=== PATIENT | female | born 1995 | race African-American/Black ===

== ENCOUNTER 2018-03-06 12:34 | Emergency (ER) | payer BC ==
[2018-03-06 12:41] VITALS: TEMP 98.2; BMI 35.4
--- NOTE | 2018-03-06 12:48 | PDOC ---
History of Present Illness - General Chief Complaint: Nausea/Vomiting Stated Complaint: FATIGUE, DEHYDRATED Time Seen by Provider: 03/06/18 12:44 - History of Present Illness Initial Comments: 03/06/18 12:56 The patient is a 22 6 week female with not significant PMH who presents for evaluation of nausea, vomiting, and fatigue. The patient notes that she follows with an OB at [facility] and had an Ultrasound 1 week ago with a confirmed intrauterine at 6 and a half weeks. She has been experiencing daily nausea and vomiting over the past 2 weeks and has been prescribed zofran by her OB. However, she notes worsening symptoms today with unable to tolerate anything PO prompting her presentation to the ED for evaluation. She reports some generalized fatigue and lightheadedness, but otherwise denies fevers, chills, SOB, chest pain, abdominal pain, changes with urination, vaginal bleeding, or vaginal discharge. Past History - Past Medical History Allergies/Adverse Reactions: Allergies Allergy/AdvReac Type Severity Reaction Status Date / Time No Known Allergies Allergy Verified 03/06/18 12:39 COPD: No - Immunization History Immunization Up to Date: No - Suicide/Smoking/Psychosocial Hx Smoking History: Never smoked Have you smoked in the past 12 months: No Information on smoking cessation initiated: No Hx Alcohol Use: No Drug/Substance Use Hx: No Substance Use Type: None Review of Systems - Review of Systems Comments:: 03/06/18 13:00 Constitutional: Fatigue. No fevers, chills, malaise HEENT: No Rhinorrhea, nasal congestion, visual changes Cardiovascular: Lightheadedness. No chest pain, syncope, palpitations, Respiratory: No Cough, SOB, Hemoptysis, Gastrointestinal: Nausea, Vomiting. No Abdominal pain, Constipation, Diarrhea, Melena Genitourinary: No Vaginal bleeding, Vaginal discharge, Dysuria, Frequency, Urgency, Hesitancy, Hematuria, Flank pain Musculoskeletal: No Myalgia, arthralgia Skin: No rashes, itching, bruising, pallor Neurologic: No Headache, Dizziness, Numbness, Weakness, or Tingling Psychiatric: No Hallucinations. No SI or HI *Physical Exam - Vital Signs Last Vital Signs Temp Pulse Resp BP Pulse Ox 98.2 F 117 H 18 145/69 100 03/06/18 12:39 03/06/18 12:39 03/06/18 12:39 03/06/18 12:39 03/06/18 12:39 - Physical Exam Comments: 03/06/18 13:01 General Appearance: Nourished. No Apparent Distress HEENT: EOMI, ANITA. No Pharyngeal Erythema, Tonsillar Exudate, Tonsillar Erythema Neck: No Cervical Lymphadenopathy Respiratory/Chest: Lungs Clear, Normal Breath Sounds. No Crackles, Rales, Rhonchi, Wheezing Cardiovascular: Regular Rhythm, Regular Rate. No Murmur, Gallops, Rubs Gastrointestinal/Abdominal: Normal Bowel Sounds, Soft. No Guarding, Rebound, Tenderness Musculoskeletal: No CVA Tenderness Extremity: Normal Capillary Refill Integumentary: Normal Color, Dry, Warm Neurologic: Fully Oriented, Alert, Normal Mood/Affect, Normal Response, ED Treatment Course - LABORATORY CBC & Chemistry Diagram: 03/06/18 13:40 03/06/18 13:55 Medical Decision Making - Medical Decision Making 03/06/18 13:03 The patient is a 22 6 week female with not significant PMH who presents for evaluation of nausea, vomiting, and fatigue. Differential includes but is not limited to: Gastroenteritis, Hyperemesis Gravidum, Infectious, Metabolic Derangement. Given the patient's history, it is likely the patient's symptoms are due to hyperemasis Gravidum. We will obtain a cbc, cmp, ua, beta-quant to evaluate further. We will treat in the meantime with iv fluids, zofran, and continue to monitor and reassess. 03/06/18 15:09 CBC, cmp, ua are unremarkable. The patient reports significant improvement in her symptoms and has tolerated PO intake without difficulty. We are comfortable discharging the patient home at this time with OB follow up. We discussed the results, plan, and return precautions with the patient who voiced understanding and is agreeable with the plan. *DC/Admit/Observation/Transfer Diagnosis at time of Disposition: Hyperemesis gravidarum - Discharge Dispostion Disposition: HOME Condition at time of disposition: Stable Decision to Admit order: No - Referrals - Patient Instructions Printed Discharge Instructions: DI for Nausea -- Adult, DI for Vomiting -- Adult Additional Instructions: Please return to the ER if you experience concerning or worsening symptoms including worsening abdominal pain, vomiting, vaginal bleeding, or fevers. Your lab results were normal here in the ER. It is important that you call to schedule a follow up appointment with your OB within 2-3 days to discuss your ER visit and further management of your symptoms. - Post Discharge Activity
[2018-03-06] MEDS ORDERED: ONDANSETRON 4 MG/2 ML VIAL IVPUSH ONE (12:53)
[2018-03-06] MEDS ORDERED: SODIUM CHLORIDE 1,000 ML IV STA (12:53)
[2018-03-06] MEDS ORDERED: ACETAMINOPHEN 1000 MG/100 ML VIAL (NON FORMULARY) IVPB ONE (12:53)
[2018-03-06] MEDS ORDERED: ONDANSETRON 4 MG/2 ML VIAL ONE (13:14)
[2018-03-06] MEDS ORDERED: ACETAMINOPHEN INJECTION 100 ML IVPB ONE (13:14)
--- NOTE | 2018-03-06 13:45 | PDOC ---
Attending Attestation - Resident Resident Name: Preston Pichardo - ED Attending Attestation I have performed the following: I have examined & evaluated the patient, The case was reviewed & discussed with the resident, I agree w/resident's findings & plan, Exceptions are as noted - HPI HPI: 03/06/18 13:40 The patient is a 22 year old approximately 6.5 weeks female(), with no significant past medical history, who presents to the emergency department with intermittent nausea, vomiting, lightheadedness for several weeks. Patient reports she has been experiencing nausea and vomiting a few times a week. She is being followed by her OB at [facility] who diagnosed her with hyperemesis gravidarum and put her on zofran. However, despite the medication, pt states she still gets nauseous. Pt has been able to tolerate most POs. Pt denies F/C. Denies abdominal pain. She states she had US last week that confirmed IUP. - Physicial Exam PE: 03/06/18 13:45 "GENERAL: Awake, alert, and fully oriented, in no acute distress. HEAD: No signs of trauma EYES: PERRLA, EOMI, sclera anicteric, conjunctiva clear ENT: Auricles normal inspection, hearing grossly normal, nares patent, oropharynx clear without exudates. Moist mucosa NECK: Nontender, no stepoffs, Normal ROM, supple, no lymphadenopathy, JVD, or masses LUNGS: Breath sounds equal, clear to auscultation bilaterally. No wheezes, and no crackles HEART: Regular rate and rhythm, normal S1 and S2, no murmurs, rubs or gallops ABDOMEN: Soft, nontender, normoactive bowel sounds. No guarding, no rebound. No masses EXTREMITIES: Normal range of motion, no edema. No clubbing or cyanosis. No cords, erythema, or tenderness NEUROLOGICAL: Cranial nerves II through XII intact. 5/5 strength and sensation in all extremities, Normal speech, normal gait, normal cerebellar function SKIN: Warm, Dry, normal turgor, no rashes or lesions noted. " - Medical Decision Making 03/06/18 13:45 22 F with hyperemesis gravidarum presents with N/V. Will r/o UTI and check for metabolic derangement. - Labs, UA, UCx - IVF, zofran - PO challenge 03/06/18 14:48 Labs, UA wnl Pt reassessed - now feels much better s/p IVF and zofran. Pt able to tolerate PO juice in ED. Repeat vitals HR 80s, BP 110s systolic. Pt is well appearing, with normal vitals. Clinically stable for DC at this time. I discussed the physical exam findings, ancillary test results and final diagnoses with the patient. I answered all of the patient's questions. The patient was satisfied with the care received and felt comfortable with the discharge plan and treatment plan. The patient agrees to follow up with the primary care physician within 24-72 hours.
[2018-03-06 14:04] LABS: BASO % 0.9 % (0-2.0); EOS % 1.4 % (0-4.5); HEMATOCRIT 36.3 % (32.4-45.2); HEMOGLOBIN 12.5 GM/dL (10.7-15.3); LYMPH % 22.7 % (8-40); MCH 26.9 pg (25.7-33.7); MCHC 34.5 g/dl (32.0-36.0); MEAN PLT VOLUME 8.3 fl (7.5-11.1); MONO % 9.4 % (3.8-10.2); NEUT % 65.6 % (42.8-82.8); PLATELET COUNT 368 K/MM3 (134-434); RBC 4.65 M/mm3 (3.60-5.2); RDW 14.1 % (11.6-15.6); WHITE BLOOD COUNT 9.9 K/mm3 (4.0-10.0)
[2018-03-06 14:05] LABS: URINE APPEARANCE SLCLOUDY; URINE BILIRUBIN NEGATIVE (<2.0 mg/dL); URINE COLOR YELLOW; URINE GLUCOSE (UA) NEGATIVE (NEGATIVE); URINE KETONE TRACE (NEGATIVE); URINE LEUK ESTERASE NEGATIVE (NEGATIVE); URINE NITRITE NEGATIVE (NEGATIVE); URINE PROTEIN NEGATIVE (NEGATIVE); URINE UROBILINOGEN NEGATIVE mg/dL (0.2-1.0)
[2018-03-06 14:08] LABS: EPI CELLS MODERATE /HPF (FEW); URINE MUCUS MANY
[2018-03-06 14:26] LABS: ALBUMIN 3.9 g/dl (3.4-5.0); ANION GAP 8 (8-16); BILIRUBIN,TOTAL 0.4 mg/dL (0.2-1.0); BLOOD UREA NITROGEN 6 mg/dL (7-18); CALCIUM 8.8 mg/dL (8.5-10.1); CHLORIDE 102 mmol/L (98-107); CO2 26 mmol/L (21-32); GLUCOSE,RANDOM 82 mg/dL (74-106); POTASSIUM 3.9 mmol/L (3.5-5.1); SGOT/AST 19 U/L (15-37); SGPT/ALT 57 U/L (12-78); SODIUM 136 mmol/L (136-145); TOT PROT 7.4 g/dl (6.4-8.2)
[2018-03-06 14:27] LABS: ALK PHOS 86 U/L (45-117); CREATININE 0.7 mg/dL (0.55-1.02)
[2018-03-06 16:19] VITALS: BP 116/63; PULSE 85
== END 2018-03-06 16:11 | disposition home or self-care (01) ==
LOC: JER 12:34
PROC: 3E033NZ Introduction of Analgesics, Hypnotics, Sedatives into Peripheral Vein, Percutaneous Approach (ICD-10-PCS; principal; 2018-03-06)
PROC: 3E033GC Introduction of Other Therapeutic Substance into Peripheral Vein, Percutaneous Approach (ICD-10-PCS; 2018-03-06)
PROC: 3E0337Z Introduction of Electrolytic and Water Balance Substance into Peripheral Vein, Percutaneous Approach (ICD-10-PCS; 2018-03-06)
DX: O26.891 Other specified pregnancy related conditions, first trimester (principal); O21.0 Mild hyperemesis gravidarum; Z3A.01 Less than 8 weeks gestation of pregnancy
CPT/HCPCS: 36415; 80053; 81003; 81015; 84702; 85025; 99281-25; J0131; J7030

== ENCOUNTER 2018-10-14 07:15 | Inpatient (IN) | payer BC ==
[~2018-10-14 07:15] MED LIST: CITRIC ACID/SODIUM CITRATE 30 ML UNIT-DOSE CUP PO ONE
[2018-10-14 08:17] LABS: BASO % 0.5 % (0-2.0); EOS % 1.6 % (0-4.5); HEMATOCRIT 34.7 % (32.4-45.2); HEMOGLOBIN 12.3 GM/dL (10.7-15.3); LYMPH % 31.7 % (8-40); MCH 27.3 pg (25.7-33.7); MCHC 35.5 g/dl (32.0-36.0); MEAN PLT VOLUME 9.5 fl (7.5-11.1); NEUT % 58.2 % (42.8-82.8); PLATELET COUNT 337 K/MM3 (134-434); RBC 4.52 M/mm3 (3.60-5.2); RDW 15.7 % (11.6-15.6); WHITE BLOOD COUNT 10.5 K/mm3 (4.0-10.0)
[2018-10-14] MEDS ORDERED: DEXTROSE 5%-LACTATED RINGERS 1,000 ML IV SCH (08:30)
[2018-10-14] MEDS ORDERED: DINOPROSTONE 10 MG VAGINAL SUPPOSITORY VG ONE (08:33)
--- NOTE | 2018-10-14 08:39 | HP ---
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: Alzheimer's, CVA, Dementia, Migraine, Multiple Sclerosis, Peripheral Neuropathy, Parkinson's, Seizure, Syncope, TIA, Vertigo, Other Cardiovascular: No: AFIB, Aneurysm, Aortic Insufficiency, Aortic Stenosis, CAD, CHF, Deep Vein Thrombosis, HTN, Hyperlipdemia, NH, Mitral Insufficiency, Mitral Stenosis, Murmur, Pulmonary Hypertension, Other Pulmonary: No: Asthma, Bronchitis, Cancer, COPD, O2 Dependent, Pneumonia, Previously Intubated, Pulmonary Embolus, Pulmonary Fibrosis, Sleep Apnea, Other Gastrointestinal: No: Ascites, Cancer, Constipation, Crohn's Disease, Diverticulitis, Diverticulosis, Esophageal Varices, Gastritis, GERD, GI Bleed, Hemorrhoids, Hiatal Hernia, Inflamatory Bowel Disease, Irritable Bowel Disease, Pancreatitis, Peptic Ulcer Disease, Ulcerative Colitis, Other Hepatobiliary: No: Cirrhosis, Cholelithiasis, Cholecystitis, Choledocholithiasis , Hepatitis A, Hepatitis B, Hepatitis C, Other Renal/: No: Renal Failure, Renal Inusuff, BPH, Cancer, Hematuria, Hemodialysis , Neurogenic Bladder, Renal Calculi, UTI, Other Reproductive: No: Ectopic , Endometriosis, Fibroids, PID, Polycystic Ovary Syndrome, Postmenopausal, Other ...: 1 ...Para: 0 ... Weeks Gestation by Dates: 40 ...EDC by Dates: 10/14/18 Heme/Onc: No: Anemia, B12 Deficiency, Bleeding Disorder, Cancer, Current Chemotherapy, Current Radiation Therapy, Hemochromatosis, Hypercoaguable State, Myeloproliferative Synd, Sickle Cell Disease, Sickle Cell Trait, Thrombocytopenia, Other Infectious Disease: No: AIDS, C-Diff, Herpes Zoster, HIV, MRSA, STD's, Tuberculosis, VREF, Other Psych: No: Addictions, Anxiety, Bipolar, Depression, Panic, Psychosis, Schizophrenia, Other Musculoskeletal: Yes: Osteoarthritis Rheumatology: No: Fibromyalgia, Gout, Lupus, Rheumatoid Arthritis, Sarcoidosis, Vasculitis, Other Endocrine: No: Liberty's Disease, Roberto's Disease, Diabetes Insipidus, Diabetes Mellitus, Hyperparathyroidism, Hyperthyroidism, Hypothyroidism, Osteopenia, SIADH, Other Dermatology: No: Basal Cell, Cellulitis, Eczema, Melanoma, Psoriasis, Squamous Cell, Other - Past Surgical History Past Surgical History: Yes: None Hx Myomectomy: No Hx Transabdominal Cerclage: No - Smoking History Smoking history: Never smoked Have you smoked in the past 12 months: No - Alcohol/Substance Use Hx Alcohol Use: No History of Substance Use: reports: None - Social History Usual Living Arrangement: Yes: With Significant Other ADL: Independent 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 History of Recent Travel: No Home Medications - Allergies Allergies/Adverse Reactions: Allergies Allergy/AdvReac Type Severity Reaction Status Date / Time No Known Allergies Allergy Verified 10/01/18 18:00 - Home Medications Home Medications: Ambulatory Orders Pnv No.95/Ferrous Fum/Folic AC [ Vitamin Tablet] 1 each PO DAILY Family Disease History - Family Disease History Family Disease History: Diabetes: Grandparent, Heart Disease: Father (HTN), Other: Mother (arthritis) Review of Systems - Review of Systems Constitutional: reports: No Symptoms Eyes: reports: No Symptoms HENT: reports: No Symptoms Neck: reports: No Symptoms Cardiovascular: reports: No Symptoms Respiratory: reports: No Symptoms Gastrointestinal: reports: No Symptoms Genitourinary: reports: No Symptoms Breasts: reports: No Symptoms Reported Musculoskeletal: reports: No Symptoms Integumentary: reports: No Symptoms Neurological: reports: No Symptoms Endocrine: reports: No Symptoms Hematology/Lymphatic: reports: No Symptoms Psychiatric: reports: No Symptoms Pain Intensity: 0 Physical Exam - Maternity Constitutional: Yes: Well Nourished, No Distress, Calm Eyes: Yes: WNL, Conjunctiva Clear, EOM Intact HENT: Yes: WNL, Atraumatic, Normocephalic Neck: Yes: WNL, Supple, Trachea Midline Cardiovascular: Yes: WNL, Regular Rate and Rhythm Lungs: Clear to auscultation, Normal air movement - Abdominal Exam/OB Fundal Height: 40 Number of Fetuses: Single Presentation: Vertex Contractions: Yes Regularity: Irregular Intensity: Unaware Monitor Mode: External Heart Rate (range): 150 Heart Rate Location: Midline Category: I Accelerations: Non-Uniform Decelerations: None - Vaginal Exam/OB Vaginal Bleediing: No Speculum Exam: No Dilatation (cm): 0 Effacement (%): 0 Amniotic Membrane Status: Intact Presentation: Vertex/Position Station: -4 (Adequate gynecoid pelvimetry, EFW ~3200g) - Physical Exam Musculoskeletal: Yes: WNL Extremities: Yes: WNL Edema: Yes Edema: LLE: Trace, RLE: Trace Deep Tendon Reflex Grade: Normal +2 ...Motor Strength: WNL Psychiatric: Yes: WNL, Alert, Oriented - Labs Lab Results: CBC, BMP 10/14/18 07:55 Hemorrhage Risk Assessment - Risk Factors Medium Risk Factors: Yes: None High Risk Factors: Yes: None Risk Score: 1 Risk Level: Medium Risk Imaging - Results Ultrasound: Report Reviewed Assessment/Plan 23yo P0 with at EGA 40wk and labile BP's in office, admitted for labor indx. Pt is not in labor. Fetus with Category I tracing. Adequate gynecoid pelvimetry on exam. We had long discussion re: risks, benefits, and alternatives of labor induction. I explained the options of expectant management awaiting spontaneous labor, induction of labor, and elective section. The risks of uterine tachysystole, distress, uterine rupture, need for emergency C/S, hemorrhage, infection, scarring, etc. were discussed. We also discussed the risks of meconium aspiration, shoulder dystocia , and anesthesia options. The pt requested to proceed with induction. We discussed the alternative methods of induction with Cervidil, Cytotec, Folley ballon, and pitocin. The pt prefers Cervidil followed by pitocin, if needed.
[2018-10-14 08:44] LABS: INR 0.98 (0.83-1.09); PROTHROMBIN TIME (PATIENT) 11.6 SEC (9.7-13.0)
[2018-10-14 08:47] LABS: URINE APPEARANCE CLOUDY; URINE BILIRUBIN NEGATIVE (<2.0 mg/dL); URINE COLOR YELLOW; URINE GLUCOSE (UA) NEGATIVE (NEGATIVE); URINE KETONE NEGATIVE (NEGATIVE); URINE LEUK ESTERASE 3+ (NEGATIVE); URINE NITRITE NEGATIVE (NEGATIVE); URINE PROTEIN 1+ (NEGATIVE); URINE UROBILINOGEN NEGATIVE mg/dL (0.2-1.0)
[2018-10-14 08:47] LABS: ACTIVATED PTT 25.9 SECONDS (25.2-36.5)
[2018-10-14 08:51] LABS: EPI CELLS MODERATE /HPF (FEW); URINE BACTERIA FEW /hpf (NONE SEEN); YEAST FEW
[2018-10-14 09:06] VITALS: BMI 36.8
[2018-10-14 09:09] LABS: ALBUMIN 2.5 g/dl (3.4-5.0); ALK PHOS 212 U/L (45-117); ANION GAP 9 MMOL/L (8-16); BILIRUBIN,TOTAL 0.3 mg/dL (0.2-1); BLOOD UREA NITROGEN 7 mg/dL (7-18); CALCIUM 8.4 mg/dL (8.5-10.1); CHLORIDE 109 mmol/L (98-107); CO2 20 mmol/L (21-32); CREATININE 0.8 mg/dL (0.55-1.3); GLUCOSE,RANDOM 87 mg/dL (74-106); POTASSIUM 4.3 mmol/L (3.5-5.1); SGOT/AST 35 U/L (15-37); SGPT/ALT 26 U/L (13-61); SODIUM 139 mmol/L (136-145); TOT PROT 6.3 g/dl (6.4-8.2); URIC ACID 8.1 mg/dL (2.6-7.2)
[2018-10-14] MEDS ORDERED: TUBERCULIN PPD 5 TU/0.1ML SYRINGE (IN PATIENT USE ONLY) ID ONE (09:15)
[2018-10-14] MEDS ORDERED: BUTORPHANOL TARTRATE 1 MG/ML VIAL IVPB ONE (12:05)
[2018-10-14] MEDS ORDERED: PROMETHAZINE HCL 25 MG/1 ML VIAL IVPB ONE (12:05)
[2018-10-14] MEDS ORDERED: PROMETHAZINE HCL 25 MG/1 ML VIAL ONE (12:17)
[2018-10-14] MEDS ORDERED: BUTORPHANOL TARTRATE 1 MG/ML VIAL ONE ×2 (12:17→12:23)
[2018-10-14] MEDS ORDERED: FENTANYL/BUPIVACAINE/NS/PF - PCEA - 50 ML DISP.SYRIN EP ONE (15:50)
[2018-10-14] MEDS ORDERED: NALOXONE HCL 0.4 MG/ML VIAL IVPUSH PRN (16:08)
[2018-10-14] MEDS ORDERED: BUPIVACAINE HCL/PF 0.25% (2.5MG/ML) 10 ML VIAL ONE (16:12)
[2018-10-14] MEDS ORDERED: LIDO 2%/EPI 1:200000 PRESRVFRE (20 ML SDVIAL) ONE ×2 (16:12→17:50)
[2018-10-14] MEDS ORDERED: FENTANYL/BUPIVACAINE/NS/PF - PCEA - 50 ML DISP.SYRIN EP SCH (16:15)
--- NOTE | 2018-10-14 16:52 | PN ---
Ante-Partal Exam - Subjective Subjective: Patient comfortable s/p epidural Vital Signs: Vital Signs Temperature 98.2 F 10/14/18 14:00 Pulse Rate 86 10/14/18 15:00 Respiratory Rate 20 10/14/18 15:00 Blood Pressure 132/75 10/14/18 15:00 O2 Sat by Pulse Oximetry (%) Bleeding: No Headache: No Visual changes: No Right upper quadrant pain: No - Contractions Contractions: Yes Regularity: Regular Intensity: Unaware Monitor Mode: External - Exam during Labor Heart Rate: 155 Variability: Moderate Category: II Monitor Accelerations: Absent Monitor Decelerations: Variable Exam: Vaginal Dilatation (cm): 1 Effacement (%): long Amniotic Membrane Status: Intact Presentation: Vertex Station: -4 - Intrapartum Hemorrhage Risk Medium Risk Factors: None High Risk Factors: None Risk Score: 0 Risk Level: Low Risk - Assessment/Plan Assessment/Plan: 23 yo IOL 1. CTX Q minute, + variable decelerations noted Will remove cervidil and observe If tolerates well may consider pitocin 2. GBS negative 3. Pain well controlled with epidural 4. Will continue expectant management
[2018-10-14] MEDS ORDERED: ELECTROLYTE-148 SOLN 1,000 ML IV ONE (16:59)
[2018-10-14] MEDS ORDERED: ELECTROLYTE-148 SOLN 1,000 ML IV SCH (17:00)
[2018-10-14] MEDS ORDERED: TERBUTALINE SULFATE 1 MG/1 ML VIAL SQ ONE ×2 (17:48→17:50)
[2018-10-14] MEDS ORDERED: morphine SULFATE/Preservative Free 0.5 MG/ML (1cc Syringe) EP ONE (17:55)
--- NOTE | 2018-10-14 17:56 | PN ---
Ante-Partal Exam - Subjective Subjective: Pt w/o complaints. FHT with tachycardia, late deels, moderate variability and tachysystole Vital Signs: Vital Signs Temperature 98.8 F 10/14/18 16:00 Pulse Rate 87 10/14/18 17:15 Respiratory Rate 20 10/14/18 17:15 Blood Pressure 136/89 10/14/18 17:15 O2 Sat by Pulse Oximetry (%) 100 10/14/18 17:15 Bleeding: No Headache: No Visual changes: No Right upper quadrant pain: No Pain (scale 1-10): 6 - Contractions Contractions: Yes Regularity: Regular Intensity: Mod/Strong Monitor Mode: External - Exam during Labor Heart Rate: 170 Variability: Moderate Heart Rate Location: Midline Category: III Monitor Accelerations: Absent Monitor Decelerations: Late Exam: Vaginal Dilatation (cm): .5 Effacement (%): 50 Amniotic Membrane Status: Intact Presentation: Vertex Station: -4 - Intrapartum Hemorrhage Risk Medium Risk Factors: None High Risk Factors: None Risk Score: 0 Risk Level: Low Risk - Assessment/Plan Assessment/Plan: Category 3 tracing. Pt is also with tachysystole and was just given SQ Terbutaline. Plan to move with C/S delivery.
[2018-10-14] MEDS ORDERED: ceFAZolin SODIUM 1 GM VIAL ONE (18:00)
[2018-10-14] MEDS ORDERED: OXYTOCIN 20 UNITS in 0.9% NS 20 UNIT/1,000 ML INFUS.BAG IV ONE (18:19)
[2018-10-14] MEDS ORDERED: oxyCODONE HCL 5 MG TABLET PO PRN (18:43)
[2018-10-14] MEDS ORDERED: METHYLERGONOVINE MALEATE 0.2 MG/1 ML AMP IM PRN (18:43)
[2018-10-14 18:56] LABS: VENOUS PH 7.24 (7.32-7.42)
--- NOTE | 2018-10-14 19:00 | PN ---
Delivery - Delivery Type of Anesthesia: Epidural Episiotomy/Laceration: None EBL (cc): 600 Delivery, Single - Stages of Labor Date 1st Stage Initiatied: 10/14/18 Time 1st Stage Initiated: 10:00 Date of Delivery: 10/14/18 Time of Delivery: 18:10 Date Placenta Delivered: 10/14/18 Time Placenta Delivered: 18:11 Placenta: Yes: Expressed, Normal Configuration - Condition of Infant Coding Director/Heavy Media Operator Present: Yes Name: June Carlton Gender: Female Weight: 3.203 kg Total Hours ROM (Hrs/Mins): 8bme1obb - 1 Minute Total Score: 9 5 Minutes Total Score: 9 - Feeding Plan Initial Plan: Exclusive throughout hospitalization Remarks - Remarks Remarks: Uncomplicated primary LT C/S
[2018-10-14 19:01] LABS: VENOUS PC02 57.3 mmHg (38-52)
[2018-10-14 19:02] LABS: ARTERIAL BLOOD GAS PCO2 65.2 mmHg (35-45); ARTERIAL BLOOD GAS PO2 12.4 mmHg (80-100); VENOUS PO2 18.8 mmHg (28-48)
[2018-10-14 19:03] LABS: ARTERIAL BLD GAS O2 SATURATION 8.8 % (90-98.9)
[2018-10-14 19:05] LABS: ARTERIAL BLOOD GAS BASE EXCESS -4.7 meq/l (-2-2)
[2018-10-14] MEDS ORDERED: ACETAMINOPHEN 1000 MG/100 ML VIAL (NON FORMULARY) IVPB PRN (21:08)
[2018-10-14] MEDS ORDERED: IBUPROFEN 800 MG/8 ML IJ IVPB PRN (21:09)
--- NOTE | 2018-10-14 21:44 | OP ---
DATE OF OPERATION: 10/14/2018 PREOPERATIVE DIAGNOSIS: at estimated gestational age of 40 weeks 0 days, nonreassuring heart tracing, failed induction. POSTOPERATIVE DIAGNOSIS: at estimated gestational age of 40 weeks 0 days, nonreassuring heart tracing, failed induction. PROCEDURE: Primary low transverse section via Pfannenstiel skin incision. SURGEON: Roshan Ivey MD INSTANTIZER OPERATOR: Yudi Gordon MD INSTANTIZER OPERATOR JUSTIFICATION: The bindery library technical assistant was required for safe and expeditious surgery. The bindery library technical assistant was critical in retraction and exposing of operative field as well as suture ligations, achieving hemostasis, maintaining a clean operative field, and delivery of the baby. ANESTHESIOLOGIST: Mia Gallego MD ANESTHESIA: Epidural. ESTIMATED BLOOD LOSS: 600 mL. INTRAVENOUS FLUIDS: 1000 mL. URINE OUTPUT: 200 mL of clear urine at the end of the procedure. FINDINGS: Live baby girl in vertex presentation. No meconium in amniotic fluids. Normal uterus, fallopian tubes, and ovaries. Apgars 9 and 9. Baby's weight is 3203 grams. PROCEDURE: The patient was met preoperatively. Risks, benefits, and alternatives of surgery were discussed. All questions were answered. The patient's consent form was reviewed and all questions were answered. The patient signed the consent form and verbalized her understanding. The patient then agreed to proceed with surgery. She was brought to the OR with IV running. The patient was placed on the surgical table in the supine position. The level of the epidural anesthesia was achieved and found to be adequate. The patient was then prepped and draped in the usual sterile fashion. A Yeager catheter was inserted and left to drain to gravity. The timeout procedure was conducted as per standard protocol. The surgeon then proceeded with the operation. A Pfannenstiel skin incision was made with a knife. The incision was taken down to the level of the fascia. The fascia was incised in the midline. The incision was then extended bilaterally using Barron scissors. The surgical technology instructor was critical for adequate retraction and exposure. The fascia was then dissected superiorly and inferiorly away from the underlying rectus muscles. The rectus muscles were in the midline bluntly. The peritoneum was identified and entered sharply. The peritoneal incision was expanded superiorly and inferiorly. The bladder peritoneum was then dissected away from the lower segment. The bladder peritoneum was retracted downwards. The surgical technology instructor was critical in retraction and exposing the operative field. The lower uterine segment was then incised transversely. The incision was extended bilaterally using bandage scissors. The amniotic bag was ruptured and clear amniotic fluid was noted. The baby was delivered from vertex presentation without complications. The surgical technology instructor was critical in assisting with delivering of the baby. The baby's mouth and nose were suctioned. The baby was handed to the awaiting automotive engineering teacher. A segment of umbilical cord was secured for umbilical cord blood gasses. The placenta was then extracted from the uterus without complications. The uterus was cleared of all clots and debris. The surgical technology instructor was critical in providing visualization and achieving hemostasis. The uterine incision was then repaired using a 0 Biosyn suture with a running stitch. The uterine incision was then imbricating using a secondary layer of closure with the 0 Biosyn suture. The bladder peritoneum was then approximated using a 0 Biosyn suture. Good hemostasis was confirmed. The operative site was irrigated using copious amounts of normal saline. Once again, once the saline was aspirated, good hemostasis was confirmed. The abdominal peritoneum was then closed using a 2-0 chromic suture. The rectus muscles were then approximated using several interrupted 2-0 chromic sutures. The fascia was closed using a 0 Vicryl suture with good hemostasis and approximation. The subcutaneous adipose tissues and Michael fascia were closed using a 0 Vicryl suture. The skin was closed with a 4-0 Vicryl suture using a subcutaneous stitch. Sponge, lap, and needle counts were correct. The surgical technology instructor was critical and integral in the safe performance of the surgery, allowing for expeditious delivery of the baby. The patient was then transferred to the recovery room in stable condition. Paulo [id number]
[2018-10-15 06:36] LABS: BASO % 0.5 % (0-2.0); EOS % 0.1 % (0-4.5); HEMATOCRIT 30.6 % (32.4-45.2); HEMOGLOBIN 10.2 GM/dL (10.7-15.3); LYMPH % 29.8 % (8-40); MCHC 33.2 g/dl (32.0-36.0); MEAN CELL VOLUME 78.3 fl (80-96); MEAN PLT VOLUME 9.3 fl (7.5-11.1); MONO % 9.5 % (3.8-10.2); NEUT % 60.1 % (42.8-82.8); PLATELET COUNT 253 K/MM3 (134-434); RDW 15.3 % (11.6-15.6); WHITE BLOOD COUNT 15.1 K/mm3 (4.0-10.0)
[2018-10-15] MEDS ORDERED: OXYTOCIN 20 UNITS in 0.9% NS 20 UNIT/1,000 ML INFUS.BAG IV SCH (08:00)
--- NOTE | 2018-10-15 08:57 | PN ---
Post Progress Note - Subjective Subjective: Patient without acute complaints. Tolerating clears, without nausea or vomiting No voiding, sosa in place draining clear fluid No ambulation or flatus yet. Denies fevers or chills. Pain well controlled. - reports good latch, no pain. Post Day: 1 Type of Delivery: Primary C/S Vital Signs: Vital Signs Temperature 98.2 F 10/15/18 07:15 Pulse Rate 81 10/15/18 07:15 Respiratory Rate 18 10/15/18 08:00 Blood Pressure 137/88 10/15/18 07:15 O2 Sat by Pulse Oximetry (%) 100 10/14/18 20:05 Breast Exam: Yes: Soft Uterus: Yes: Fundus Firm, Fundus below umbilicus Incision: Yes: Dressing dry and intact Abdomen/GI: Yes: Abdomen soft. No: Tolerating PO Lochia: Yes: Serosa Lochia, amount: Moderate Extremities: Yes: Calves non-tender, Edema (trace) Activity: Ambulating - Labs Labs: CBC WBC 15.1 K/mm3 (4.0-10.0) H 10/15/18 05:00 RBC 3.90 M/mm3 (3.60-5.2) 10/15/18 05:00 Hgb 10.2 GM/dL (10.7-15.3) L 10/15/18 05:00 Hct 30.6 % (32.4-45.2) L 10/15/18 05:00 MCV 78.3 fl (80-96) L 10/15/18 05:00 MCH 26.0 pg (25.7-33.7) 10/15/18 05:00 MCHC 33.2 g/dl (32.0-36.0) 10/15/18 05:00 RDW 15.3 % (11.6-15.6) 10/15/18 05:00 Plt Count 253 K/MM3 (134-434) D 10/15/18 05:00 MPV 9.3 fl (7.5-11.1) 10/15/18 05:00 Absolute Neuts (auto) 9.0 K/mm3 (1.5-8.0) H 10/15/18 05:00 Neutrophils % 60.1 % (42.8-82.8) 10/15/18 05:00 Lymphocytes % 29.8 % (8-40) 10/15/18 05:00 Monocytes % 9.5 % (3.8-10.2) 10/15/18 05:00 Eosinophils % 0.1 % (0-4.5) D 10/15/18 05:00 Basophils % 0.5 % (0-2.0) 10/15/18 05:00 Nucleated RBC % 0 % (0-0) 10/15/18 05:00 Assessment/Plan 23 yo POD # 1 s/p primary CD, afebrile, vital signs stable doing well 1. Continue routine postoperative care. 2. AM CBC without signs of anemia 3. Rh positive status, no rhogam indicated. 4. Encourage ambulation and incentive spirometer use 5. Continue oral pain medication 6. Anticipate discharge home postoperative day #3 or #4
[2018-10-15] MEDS: PRENATAL VITAMINS W/ FOLIC ACID TABLET (FP) PO SCH (10:19)
--- NOTE | 2018-10-15 10:51 | PN ---
Progress Note (short form) - Note Progress Note: Anesthesia/Pain Pt seen and examined S:alert and awake O: Vital Signs Temperature 98.2 F 10/15/18 07:15 Pulse Rate 81 10/15/18 07:15 Respiratory Rate 18 10/15/18 08:00 Blood Pressure 137/88 10/15/18 07:15 O2 Sat by Pulse Oximetry (%) 100 10/14/18 20:05 CBC, BMP 10/15/18 05:00 10/14/18 07:55 A/P: s/p c section Doing well post op Continue current care Raad Dean MD
[2018-10-15] MEDS: IBUPROFEN 600 MG TABLET (FP) PO PRN ×2 (13:20→21:54)
[2018-10-15] MEDS: ACETAMINOPHEN 325 MG TABLET (FP) PO PRN ×2 (13:22→21:54)
[2018-10-15] MEDS: SIMETHICONE 80 MG TAB.CHEW (FP) PO PRN ×2 (13:23→21:54)
[2018-10-15] MEDS ORDERED: BISACODYL 10 MG SUPP.RECT RC PRN (18:43)
[2018-10-15] MEDS: SENNOSIDES/DOCUSATE COMBO (SENNA PLUS) TABLET (UD) PO PRN (21:54)
[2018-10-16] MEDS: SIMETHICONE 80 MG TAB.CHEW (FP) PO PRN ×3 (07:50→19:30)
[2018-10-16] MEDS: IBUPROFEN 600 MG TABLET (FP) PO PRN ×3 (07:50→19:31)
[2018-10-16] MEDS: ACETAMINOPHEN 325 MG TABLET (FP) PO PRN (07:51)
--- NOTE | 2018-10-16 09:43 | PN ---
Progress Note (short form) - Note Progress Note: pod 2 no c/o passing gas , no excess vaginal bleeding CBC, BMP 10/15/18 05:00 10/14/18 07:55 Last Vital Signs Temp Pulse Resp BP Pulse Ox 97.6 F 98 H 20 137/99 100 10/15/18 21:49 10/15/18 21:49 10/15/18 21:49 10/15/18 21:49 10/14/18 20:05 abdomen soft, no distension, no cva uterus firm incision dry, clean no calf tenderness impression pod 2 , dooing well, ambulating plan ambulate , advance diet cbc in am
[2018-10-16] MEDS: PRENATAL VITAMINS W/ FOLIC ACID TABLET (FP) PO SCH (10:16)
[2018-10-16] MEDS: oxyCODONE HCL 5 MG TABLET PO PRN ×2 (13:40→19:31)
[2018-10-16] MEDS: SENNOSIDES/DOCUSATE COMBO (SENNA PLUS) TABLET (UD) PO PRN (19:31)
[2018-10-17] MEDS: oxyCODONE HCL 5 MG TABLET PO PRN ×2 (02:02→08:12)
[2018-10-17] MEDS: SIMETHICONE 80 MG TAB.CHEW (FP) PO PRN ×2 (02:02→08:13)
[2018-10-17] MEDS: IBUPROFEN 600 MG TABLET (FP) PO PRN ×2 (02:02→13:00)
[2018-10-17 07:16] LABS: BASO % 0.4 % (0-2.0); EOS % 1.8 % (0-4.5); HEMATOCRIT 34.3 % (32.4-45.2); HEMOGLOBIN 11.2 GM/dL (10.7-15.3); LYMPH % 25.3 % (8-40); MCH 25.5 pg (25.7-33.7); MCHC 32.6 g/dl (32.0-36.0); MEAN CELL VOLUME 78.3 fl (80-96); MEAN PLT VOLUME 8.9 fl (7.5-11.1); MONO % 7.2 % (3.8-10.2); NEUT % 65.3 % (42.8-82.8); PLATELET COUNT 312 K/MM3 (134-434); RBC 4.38 M/mm3 (3.60-5.2); RDW 15.4 % (11.6-15.6); WHITE BLOOD COUNT 12.9 K/mm3 (4.0-10.0)
[2018-10-17] MEDS: ACETAMINOPHEN 325 MG TABLET (FP) PO PRN ×2 (08:14→13:01)
[2018-10-17 09:10] VITALS: TEMP 98.4
[2018-10-17] MEDS: PRENATAL VITAMINS W/ FOLIC ACID TABLET (FP) PO SCH (10:44)
[2018-10-17 14:31] VITALS: BP 104/76; PULSE 76
--- NOTE | 2018-10-17 15:41 | DS ---
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: Vital Signs Temperature 98.4 F 10/17/18 14:00 Pulse Rate 76 10/17/18 14:00 Respiratory Rate 20 10/17/18 14:00 Blood Pressure 104/76 10/17/18 14:00 O2 Sat by Pulse Oximetry (%) 100 10/14/18 20:05 Constitutional: Yes: Well Nourished, No Distress, Calm Eyes: Yes: WNL, Conjunctiva Clear, EOM Intact HENT: Yes: WNL, Atraumatic, Normocephalic Neck: Yes: WNL, Supple, Trachea Midline Labs: CBC, BMP 10/17/18 06:15 10/14/18 07:55 Delivery - Delivery Section: Primary Type of Anesthesia: Epidural Episiotomy/Laceration: None EBL (cc): 600 Delivery, Single - Stages of Labor Date 1st Stage Initiatied: 10/14/18 Time 1st Stage Initiated: 10:00 Date of Delivery: 10/14/18 Time of Delivery: 18:10 Time Placenta Delivered: 18:11 Placenta: Yes: Expressed, Normal Configuration - 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 You may walk unlimited freedom of and climb stairs. You may resume driving the car when you feel safe and comfortable behind the wheel. No sexual activity as instructed. Wound care If you have a bandage, leave it on, and keep dry for 48-72 hours. After that time discard the outer bandage. If they are tapes on the skin under the out of bandage leave them in place. They will peel off in the next 7 to 10 days. Do Not Peel them off. You may shower the day after surgery. If there are tapes present on the skin, you may shower over them. Diet There are no dietary restrictions. Eat healthy, high-fiber foods. Drink 6 to 8 glasses of liquid each day. This will assist in keeping your bowels are regular. Pain management You may take Tylenol or acetaminophen or Ibuprofen (for example, Motrin, Advil etc.) from my pain prescription medication is ordered should be taken as prescribed for moderate to severe pain. Call MD for any of the following: Severe pain not relieved by medication Fever of 101 or higher Excessive bleeding or drainage on dressing Inability to urinate Referrals: Roshan Ivey MD [Staff Physician] - Disposition: HOME - Home Medications Comprehensive Discharge Medication List: Ambulatory Orders Pnv No.95/Ferrous Fum/Folic AC [ Vitamin Tablet] 1 each PO DAILY
--- NOTE | 2018-10-19 14:36 | PATH ---
Surgical Pathology Report Patient Name: PAUL GARZA [facility]. Rec. 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 Specimen(s) Received PLACENTA Clinical History primary Final Diagnosis PLACENTA: THIRD TRIMESTER PLACENTA WITH FOCAL INTRAPARENCHYMAL HEMORRHAGIC INFARCTION (1.8 CM IN GREATEST DIMENSION). TRIVASCULAR CORD. MEMBRANES WITH NO DIAGNOSTIC ABNORMALITIES. Electronically Signed Sonia Vazquez M.D. Gross Description The specimen is received fresh labeled placenta and is a 463 gram, 19.0 x 12.5 x 3.0 cm. placenta with attached membranes and umbilical cord. The attached membranes are kinney, translucent with focal opacities and insert marginally. The umbilical cord measures 16 cm. in length and averages 1.0 cm. in diameter. The cord inserts eccentrically, 2 cm. to the nearest margin. No true knots or strictures are identified. Cut surface of the umbilical cord reveals 3 vessels. The surface is church-blue with minimal fibrin deposition and appropriate caliber vessels. The maternal surface is red-brown with focal defects. Sectioning reveals a 1.8 cm in greatest dimension hemorrhagic intraparenchymal lesion. The remaining placental parenchyma is red-brown and spongy. Partner Manager sections are submitted in 4 cassettes as follows: 1-membrane roll and umbilical cord; 2-lesion; 5-5-[id number] full thickness sections placenta. /10/16/2018 [facility]10/16/2018
== END 2018-10-17 17:00 | disposition home or self-care (01) | DRG 788 ==
LOC: JLDR 07:15 → J3W 20:24
PROVIDERS: ADMIT Obstetrics & Gynecology; ATTEND Obstetrics & Gynecology
PROC: 10D00Z1 Extraction of Products of Conception, Low, Open Approach (ICD-10-PCS; principal; 2018-10-14)
PROC: 3E0P7VZ Introduction of Hormone into Female Reproductive, Via Natural or Artificial Opening (ICD-10-PCS; 2018-10-14)
DX: O48.0 Post-term pregnancy (principal); O76 Abnormality in fetal heart rate and rhythm complicating labor and delivery; O61.0 Failed medical induction of labor; Z3A.40 40 weeks gestation of pregnancy; Z37.0 Single live birth
CPT/HCPCS: 36415; 36600; 80053; 81003; 81015; 82803; 84550; 85025; 85610; 85730; 86593; 86850; 86900; 86901; 87389; 88307-TC; J0131

== ENCOUNTER 2025-03-03 15:17 | Inpatient (IN) | payer BC ==
[2025-03-03 15:33] VITALS: BMI 39.8
[2025-03-03 16:40] LABS: ABSOLUTE IMMATURE GRANULOCYTES 0.04 x10^3/uL (0.0-0.031); BASOPHILS # 0.07 x10^3/uL (0.01-0.08); EOSINOPHIL % 1.2 % (0.7-5.8); EOSINOPHILS # 0.13 x10^3/uL (0.04-0.36); HEMATOCRIT 24.7 % (34.1-44.9); HEMOGLOBIN 7.7 g/dL (11.2-15.7); MCHC 31.2 g/dl (32.2-35.5); MEAN CELL VOLUME 65.2 fl (79.4-94.8); MONOCYTE # 0.76 x10^3/uL (0.24-0.86); MONOCYTE % 7.3 % (4.7-12.5); PLATELET COUNT 545 x10^3/uL (182-369); RDW 17.6 % (12.1-16.8)
[2025-03-03 16:48] LABS: INR 1.09 (0.83-1.09)
[2025-03-03 16:51] LABS: ACTIVATED PTT 27.1 SECONDS (25.2-36.5)
[2025-03-03 17:03] LABS: POTASSIUM 4.1 mmol/L (3.5-5.1)
[2025-03-03 17:05] LABS: BLOOD UREA NITROGEN 9.4 mg/dL (7-18); CALCIUM 9.3 mg/dL (8.5-10.1)
[2025-03-03 17:06] LABS: ALBUMIN 3.5 g/dl (3.4-5.0); MAGNESIUM 1.9 mg/dL (1.8-2.4)
[2025-03-03 17:10] LABS: BILIRUBIN,TOTAL 0.3 mg/dL (0.2-1); CREATININE 0.8 mg/dL (0.55-1.3); TOT PROT 6.9 g/dl (6.4-8.2)
[2025-03-03] MEDS ORDERED: PROPOFOL 20 ML ONE (20:15)
[2025-03-03] MEDS ORDERED: MIDAZOLAM HCL 2 MG/2 ML SINGLE DOSE VIAL ONE (20:15)
[2025-03-03] MEDS ORDERED: SUCCINYLCHOLINE CHLORIDE 200 MG/10 ML SYRINGE ONE (20:18)
[2025-03-03] MEDS ORDERED: LIDOCAINE HCL/PF 2% SDV 5ML VIAL ONE (21:16)
[2025-03-03] MEDS ORDERED: DEXAMETHASONE SOD PHOSPHATE 4 MG/1 ML VIAL ONE (21:16)
[2025-03-03] MEDS ORDERED: ONDANSETRON 4 MG/2 ML VIAL ONE ×2 (21:16→22:08)
[2025-03-03] MEDS ORDERED: ONDANSETRON 4 MG/2 ML VIAL IVPUSH PRN (21:22)
[2025-03-03] MEDS: LACTATED RINGERS SOLUTION 1,000 ML IV SCH (21:33)
[2025-03-03] MEDS: ACETAMINOPHEN 1000 MG/100 ML BAG IVPB ONE (21:49)
[2025-03-03] MEDS ORDERED: ELECTROLYTE-148 SOLN 1,000 ML IV SCH (22:00)
[2025-03-03] MEDS ORDERED: IBUPROFEN 600 MG TABLET (FP) PO PRN (22:00)
[2025-03-03] MEDS ORDERED: IBUPROFEN 800 MG/8 ML IJ IVPB PRN (22:00)
[2025-03-03] MEDS ORDERED: oxyCODONE HCL 5 MG TABLET PO PRN (22:00)
[2025-03-03] MEDS: ONDANSETRON 4 MG/2 ML VIAL IVPUSH PRN (22:10)
[2025-03-04 08:42] LABS: ABSOLUTE IMMATURE GRANULOCYTES 0.04 x10^3/uL (0.0-0.031); BASOPHILS # 0.02 x10^3/uL (0.01-0.08); EOSINOPHIL % 0.1 % (0.7-5.8); EOSINOPHILS # 0.01 x10^3/uL (0.04-0.36); HEMATOCRIT 29.2 % (34.1-44.9); HEMOGLOBIN 9.2 g/dL (11.2-15.7); MCHC 31.5 g/dl (32.2-35.5); MEAN CELL VOLUME 67.7 fl (79.4-94.8); MEAN PLT VOLUME 9.9 fl (9.4-12.3); MONOCYTE # 0.17 x10^3/uL (0.24-0.86); MONOCYTE % 1.7 % (4.7-12.5); PLATELET COUNT 514 x10^3/uL (182-369); RDW 19.2 % (12.1-16.8)
[2025-03-04 09:45] VITALS: BP 126/84; PULSE 86; RESP 18; TEMP 98.1
== END 2025-03-04 10:52 | disposition home or self-care (01) | DRG 761 ==
LOC: JER 15:17 → JERBED 17:58 → J7W 19:08
PROVIDERS: ADMIT Obstetrics & Gynecology; ATTEND Obstetrics & Gynecology
PROC: 30233N1 Transfusion of Nonautologous Red Blood Cells into Peripheral Vein, Percutaneous Approach (ICD-10-PCS; 2025-03-03)
PROC: 10D07Z8 Extraction of Products of Conception, Other, Via Natural or Artificial Opening (ICD-10-PCS; principal; 2025-03-03 20:30)
DX: D25.0 Submucous leiomyoma of uterus (principal); N92.1 Excessive and frequent menstruation with irregular cycle; D25.1 Intramural leiomyoma of uterus; D64.9 Anemia, unspecified; N93.9 Abnormal uterine and vaginal bleeding, unspecified; E66.9 Obesity, unspecified; Z68.39 Body mass index [BMI] 39.0-39.9, adult
CPT/HCPCS: 36415; 36430; 80053; 83735; 84703; 85025; 85610; 85730; 86922; 88305-TC; 94760; 99291; J0131; P9058